=== PATIENT | female | born 1995 | race Hispanic/Latino ===

== ENCOUNTER 2021-09-06 15:03 | Emergency (ER) | payer OTHER, SELFPAY ==
[2021-09-06 16:12] LABS: Bilirubin Negative (Negative); Blood, Urine 3+ (Negative); Clarity Turbid (Clear); Glucose, Urine (Dipstick) Normal (Negative); Ketone, Urine Negative (Negative); Leukocyte 500 Leu/uL (Negative); Nitrite Negative (Negative); Protein, Urine (Dipstick) 20 mg/dL (Neg-Trace); Specific Gravity, Urine 1.028 (1.002-1.036); WBC/HPF 21-50 HPF (0-3); pH, Urine 7.5 (5.0-9.0)
[2021-09-06 16:19] LABS: Bacteria/HPF 1+ HPF (None Seen)
[2021-09-07 12:38] LABS: Chlamydia by PCR Not Detected (NotDetected); GC by PCR Not Detected (NotDetected)
== END 2021-09-06 17:08 | disposition home or self-care (01) ==
LOC: ERS 15:03
DX: N39.0 Urinary tract infection, site not specified (principal); R21 Rash and other nonspecific skin eruption
CPT/HCPCS: 81003; 81015; 87077; 87086; 87480; 87491; 87510; 87591; 87660; 99283

== ENCOUNTER 2021-10-08 18:39 | Emergency (ER) | payer OTHER | END 2021-10-08 19:26 | disposition home or self-care (01) | LOC: ERS 18:39 | DX: N89.9 Noninflammatory disorder of vagina, unspecified (principal) | CPT/HCPCS: 99283 ==